=== PATIENT | female | born 2000 | race Hispanic/Latino ===

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

== ENCOUNTER 2022-05-18 18:15 | Outpatient (CLI) | payer OTHER ==
[~2022-05-18] VITALS: Ht 63 cm; Wt 80.1 kg
[~2022-05-18 18:15] MED LIST changes: +CYCL10TA25 PO; -CYCL10TA9 PO; -IBUP-15 PO; +IBUP-16 PO; +NAPR-1070 PO; -NAPR550T PO; +SERT-412 PO; -SERT25TA5 PO
[2022-05-18 18:40] VITALS: BP 126/79
[2022-05-18 18:52] VITALS: BP 126/79
[2022-05-18 19:51] LABS: BILIRUBIN,URINE NEGATIVE (NEGATIVE); CLARITY,URINE CLEAR; COLOR,URINE YELLOW; GLUCOSE, URINE (UA) NEGATIVE (NEGATIVE); KETONES,URINE NEGATIVE (NEGATIVE); LEUKOCYTE ESTERASE ,URINE TRACE (NEGATIVE); NITRITE,URINE NEGATIVE (NEGATIVE); PROTEIN,URINE NEGATIVE (NEGATIVE)
[2022-05-18 20:14] VITALS: BP 115/75
[2022-05-18 20:28] LABS: BACTERIA,URINE FEW /HPF
[2022-05-18 20:40] VITALS: BP 117/75
[2022-05-18] MEDS ORDERED: PREN-102 PO (20:54)
[2022-05-18 21:05] VITALS: BP 117/75
--- NOTE | 2022-05-19 09:22 | Physician Query-Final Dx ---
Clinic Account Progress/Dx Physician Query: Please give diagnosis Please include # weeks gestation Date of Service May 18, 2022 at 18:15 RJ,MayMay 19, 2022 09:22
== END 2022-05-18 21:05 ==
LOC: WSo 18:15 → LDRP 18:16 → WSo 21:05
PROVIDERS: ATTEND Family Medicine
DX: O16.3 Unspecified maternal hypertension, third trimester (principal); Z3A.39 39 weeks gestation of pregnancy
CPT/HCPCS: 81000; 87088; 99213

== ENCOUNTER 2022-05-27 02:09 | Inpatient (IN) | payer OTHER ==
[2022-05-27] VITALS (77 sets, daily range): BP systolic 94–164; BP diastolic 56–91
[~2022-05-27] VITALS: Ht 160 cm; Wt 81.0 kg
[~2022-05-27 02:09] MED LIST changes: +PREN-102 PO
[2022-05-27 02:44] LABS: BILIRUBIN,URINE NEGATIVE (NEGATIVE); COLOR,URINE YELLOW; GLUCOSE, URINE (UA) NEGATIVE (NEGATIVE); KETONES,URINE NEGATIVE (NEGATIVE); LEUKOCYTE ESTERASE ,URINE NEGATIVE (NEGATIVE); NITRITE,URINE NEGATIVE (NEGATIVE); PH,URINE 6.5 (5-9); PROTEIN,URINE NEGATIVE (NEGATIVE)
[2022-05-27 03:03] LABS: BACTERIA,URINE TRACE /HPF; CLARITY,URINE CLEAR
[2022-05-27] MEDS ORDERED: AMPICILLIN FOR IV USE 2,000 MG in NS (IVPB) 50 ML IV SCH (08:15)
--- NOTE | 2022-05-27 08:16 | History & Physical-OB ---
OB - Chief Complaint & HPI Date/Time Date of Admission: Date of Admission: Date seen by a Provider: May 27, 2022 Time Seen by a Provider: 08:18 Chief Complaint/History OB-Reason for Admission/Chief: Onset of Labor Hx : 2 Hx Para: 0 Expected Date of Delivery: May 24, 2022 Gestational Age in Weeks: 40 Gestational Age in Days: 3 History of Labs O+, antibody neg, RI. HIV/HepB/RPR neg. GC/chlamydia neg. GBS pos. Other 22 yo at 40w3d presented to hospital with contractions starting around 10 pm last night, was able to go to sleep for a bit, but got worse around 1 am, and came in. Initially found to be 1.5 cm dilated, this morning has changed to 4 cm. Allergies and Home Medications Allergies Coded Allergies: No Known Drug Allergies (Unverified , 04/14/09) Patient Home Medication List Home Medication List Reviewed: Yes Vits #93/Iron Fum/FA ( Formula Tablet) 9 Mg Iron-267 Mcg Tablet, 1 EACH PO DAILY, (Reported) Entered as Reported by: ALIA GAMEZ on 05/18/222053 Last Action: Reviewed OB - History Hx of Present Care: Yes Ultrasounds: Abnormal US findings (bilobed placenta, not near cervix, otherwise normal anatomy US, repeat US at 30 weeks done and concern for small growth, saw MFM and they felt EDC was wrong, and when adjusted, growth was appropriate, re peat US with them showed adequate growth) Obstetrical Complications: None Medical Complications: None Information Induced Hypertension: No Maternal Gestational Diabetes: No Hemorrhage: No Obstetrical History Hx : 2 Hx Para: 0 Hx # Term Pregnancies: 0 Hx # Pregnancies: 0 Number of Living Children: 0 Hx Termination: Yes Hx Total # of Abortions (Spona: 1 Hx Multiple Gestation: No Hx Ectopic : No Hx Stillbirth: No Hx Complication: No Hx Induced Hypertens: No Hx Maternal Gestational Diabet: No Hx Hemorrhage: No Delivery History Hx Dystocia: No Hx Forceps Assisted Delivery: No Hx Vacuum Extraction Assisted: No Hx Placenta Abnormality: No Hx Distress: No Hx Large For Gestational Age I: No Hx Small for Gestational Age I: No Hx Section: No Hx Vaginal Delivery Post C-Sec: No Hx Blood Disorders: No Adverse Rxn to Tranfusion: No Patient Past Medical History PMHx: Mild intermittent asthma Depression SurgHx: Denies Social History/Family History Alcohol Use: Denies Use Recreational Drug Use: Yes (history of THC, last use reported May 2021) Smoking Cessation: Never smoker 2nd Hand Smoke Exposure: No Immunizations Influenza Vaccine Up-to-Date: Yes; Up-to-Date Tetanus Booster (TDap): Less than 5yrs Rubella: immune RPR/VDRL: Negative GBS Status: Positive HBsAG: Negative OB - Admission Exam Physical Exam Vitals: Vital Signs HEENT: NCAT Abdomen: Non tender Extremities: Edema Cervical Dilatation: 4cm Effacement: 75% Station: -3 Membranes: Intact Heart Rate: 140's Accelerations: Accelerations Present Decelerations: No Decelerations Short Term Variability: Present Fpc Variability: Average (6-25) Contractions on Admission: < 5 Minutes Apart Labs Laboratory Tests Test 05/27/22 02:10 Range/Units Urine Color YELLOW Urine Clarity CLEAR Urine pH 6.5 5-9 Urine Specific [place] 1.020 1.016-1.022 Urine Protein NEGATIVE NEGATIVE Urine Glucose (UA) NEGATIVE NEGATIVE Urine Ketones NEGATIVE NEGATIVE Urine Nitrite NEGATIVE NEGATIVE Urine Bilirubin NEGATIVE NEGATIVE Urine Urobilinogen 0.2 < = 1.0 MG/DL Urine Leukocyte Esterase NEGATIVE NEGATIVE Urine RBC (Auto) NEGATIVE NEGATIVE Urine RBC NONE /HPF Urine WBC NONE /HPF Urine Squamous Epithelial Cells 5-10 /HPF Urine Crystals NONE /LPF Urine Bacteria TRACE /HPF Urine Casts NONE /LPF Urine Mucus NEGATIVE /LPF Urine Culture Indicated NO OB - Assessment/Plan/Diagnosis Assessment Admission Dx Term intrauterine at 40w3d Active labor GBS positive Admission Status: Inpatient Order (span 2 midnights) Reason for Inpatient Admission: Labor, delivery and course Plan Plan: Expectant Management Other Plan Ampicillin for GBS pos KELLY DUNNE MD May 27, 2022 08:16
[2022-05-27] MEDS ORDERED: fentaNYL INJ 100 MCG/2 ML AMP IVP PRN (08:30)
[2022-05-27] MEDS ORDERED: MINERAL OIL 30 ML UDC TOP PRN (08:30)
[2022-05-27 08:39] LABS: BASOPHILS % (AUTO) 0 % (0-10); EOSINOPHILS # (AUTO) 0.1 10^3/uL (0.0-0.3); EOSINOPHILS % (AUTO) 0 % (0-10); HEMATOCRIT 35 % (35-52); HEMOGLOBIN 11.4 g/dL (11.5-16.0); LYMPHOCYTES % (AUTO) 8 % (12-44); MEAN CORPUSCULAR HEMOGLOBIN 29 pg (25-34); MEAN CORPUSCULAR HGB CONC 33 g/dL (32-36); MEAN CORPUSCULAR VOLUME 87 fL (80-99); MEAN PLATELET VOLUME 11.8 fL (9.0-12.2); MONOCYTES # (AUTO) 0.3 10^3/uL (0.0-1.0); MONOCYTES % (AUTO) 3 % (0-12); NEUTROPHILS # (AUTO) 10.9 10^3/uL (1.8-7.8); NEUTROPHILS % (AUTO) 88 % (42-75); PLATELET COUNT 195 10^3/uL (130-400); WHITE BLOOD COUNT 12.4 10^3/uL (4.3-11.0)
[2022-05-27] MEDS ORDERED: fentaNYL 2 mcg/ml BUPIVA 0.125 100 ML ONE (08:40)
[2022-05-27] MEDS: D5 LR IV SOLUTION 1,000 ML IV SCH ×2 (08:47→16:12)
[2022-05-27 08:58] LABS: BAND NEUTROPHILS 0 %; BASOPHILS % (MANUAL) 0 %; EOSINOPHILS % (MANUAL) 0 %; LYMPHOCYTES % (MANUAL) 9 %; MONOCYTES % (MANUAL) 2 %; NEUTROPHILS % (MANUAL) 89 %; RBC MORPH NORMAL
[2022-05-27] MEDS ORDERED: BUPIVACAINE 0.25% 10 ML (SENSORCAINE) VIAL ONE (09:33)
[2022-05-27] MEDS ORDERED: fentaNYL INJ 100 MCG/2 ML AMP ONE (09:33)
[2022-05-27] MEDS ORDERED: CATHETER FLUSH 10 ML SYR IV PRN (10:15)
[2022-05-27] MEDS ORDERED: ONDANSETRON 4 MG/2 ML (SDV) Z0FRAN IV PRN (10:15)
[2022-05-27] MEDS ORDERED: LACTATED RINGERS 1,000 ML IV ONE (10:15)
[2022-05-27] MEDS ORDERED: NALOXONE 0.4 MG/ML 1 ML (NARCAN) VIAL IV PRN (10:15)
[2022-05-27] MEDS ORDERED: fentaNYL 2 mcg/ml BUPIVA 0.125 100 ML IV SCH (10:15)
[2022-05-27] MEDS ORDERED: diphenhydrAMINE 50 MG/ML INJ (BENADRYL) IV PRN (10:15)
[2022-05-27] MEDS: AMPICILLIN FOR IV USE 1,000 MG in NS (IVPB) 50 ML IV SCH ×4 (12:20→23:40)
[2022-05-27] MEDS ORDERED: CATHETER FLUSH 10 ML SYR IV SCH (14:00)
--- NOTE | 2022-05-27 20:34 | Labor Progress Note ---
Labor Progress Note Labor Progress Note Date Seen by Provider: May 27, 2022 Time Seen by Provider: 20:00 Subjective: Pt denies complaints. Objective: Cervical exam: /-3 Consistency: soft Position: anterior Presentation: vertex heart tones: 130 beats per minute, moderate variability, reactive Tocometer: 2-3 ctx/10 minutes Assessment/Plan: Myla Perez is a (22 /Para 2 / 0,Gestational Age (wks)40 here for active labor. AROM done at time of exam with meconium stained fluid return noted. CEFM/TOCO Anesthesia: epidural Anticipate vaginal delivery. Vitals - Labs Vital Signs - I&O Vital Signs Date Time Temp Pulse Resp B/P (MAP) Pulse Ox O2 Delivery O2 Flow Rate FiO2 05/27/22 19:18 36.6 65 18 121/78 (92) 100 05/27/22 19:05 67 18 114/78 (90) 100 Room Air 05/27/22 18:55 65 18 121/77 (92) 100 Room Air 05/27/22 18:45 36.3 64 18 121/74 (90) 100 Room Air 05/27/22 18:35 68 18 113/78 (90) 100 Room Air 05/27/22 18:25 64 18 120/82 (95) 100 Room Air 05/27/22 18:15 64 18 115/74 (88) 100 Room Air 05/27/22 18:05 60 18 111/74 (86) 100 Room Air 05/27/22 17:55 68 18 119/79 (92) 100 Room Air 05/27/22 17:45 62 18 111/73 (86) 100 Room Air 05/27/22 17:35 71 18 112/77 (89) 100 Room Air 05/27/22 17:25 74 18 109/73 (85) 100 Room Air 05/27/22 16:45 68 18 110/75 (87) 100 Room Air 05/27/22 16:35 36.3 75 18 105/75 (85) 99 Room Air 05/27/22 16:15 81 18 112/66 (81) 99 Room Air 05/27/22 16:05 68 18 118/75 (89) 99 Room Air 05/27/22 15:55 64 18 117/78 (91) 99 Room Air 05/27/22 15:45 57 18 125/81 (96) 100 Room Air 05/27/22 15:35 68 18 113/74 (87) 100 Room Air 05/27/22 15:25 56 18 115/72 (86) 100 Room Air 05/27/22 15:15 66 18 116/65 (82) 100 Room Air 05/27/22 15:07 66 18 112/73 (86) 100 Room Air 05/27/22 14:55 57 18 111/59 (76) 100 Room Air 05/27/22 14:45 67 18 115/70 (85) 100 Room Air 05/27/22 14:35 73 18 111/72 (85) 100 Room Air 05/27/22 14:19 79 18 110/64 (79) 100 Room Air 05/27/22 14:10 62 18 94/59 (71) 100 Room Air 05/27/22 14:00 36.7 77 18 100/56 (71) 99 Room Air 05/27/22 13:45 74 18 94/61 (72) 99 Room Air 05/27/22 13:30 57 18 105/63 (77) 99 Room Air 05/27/22 13:20 67 18 107/56 (73) 100 Room Air 05/27/22 13:10 66 18 109/68 (82) 99 Room Air 05/27/22 13:00 71 18 103/59 (74) 99 Room Air 05/27/22 12:45 67 18 95/59 (71) 99 Room Air 05/27/22 12:30 71 18 101/62 (75) 99 Room Air 05/27/22 12:15 65 18 102/59 (73) 100 Room Air 05/27/22 12:00 72 18 104/63 (77) 99 Room Air 05/27/22 11:45 73 18 110/69 (83) 99 Room Air 05/27/22 11:30 59 18 112/68 (83) 99 Room Air 05/27/22 11:15 63 18 101/59 (73) 99 Room Air 05/27/22 11:00 72 18 108/66 (80) 99 Room Air 05/27/22 10:50 67 18 107/66 (80) 98 Room Air 05/27/22 10:40 68 18 113/67 (82) 98 Room Air 05/27/22 10:30 60 18 110/62 (78) 97 Room Air 05/27/22 10:26 78 18 108/73 (85) 98 Room Air 05/27/22 10:20 36.4 75 18 113/75 (88) 99 Room Air 05/27/22 10:15 88 18 113/73 (86) 99 Room Air 05/27/22 10:10 74 18 112/78 (89) 98 Room Air 05/27/22 10:07 72 18 119/73 (88) 98 Room Air 05/27/22 10:04 74 18 118/67 (84) 98 Room Air 05/27/22 10:00 69 18 110/69 (83) 98 Room Air 05/27/22 09:54 75 18 119/74 (89) 99 Room Air 05/27/22 09:50 70 20 129/79 (96) 99 Room Air 05/27/22 09:48 80 20 126/73 (90) 99 Room Air 05/27/22 09:40 71 20 140/81 (100) 99 Room Air 05/27/22 08:00 36.3 66 18 128/76 (93) 98 Room Air 05/27/22 02:25 36.6 75 18 125/81 98 05/27/22 02:25 36.6 75 18 125/81 (96) 98 Room Air 05/27/22 02:25 36.6 75 18 98 Room Air Labs Laboratory Tests 05/27/22 02:10: Urine Color YELLOW, Urine Clarity CLEAR, Urine pH 6.5, Urine Specific [place] 1.020, Urine Protein NEGATIVE, Urine Glucose (UA) NEGATIVE, Urine Ketones NEGATIVE, Urine Nitrite NEGATIVE, Urine Bilirubin NEGATIVE, Urine Urobilinogen 0.2, Urine Leukocyte Esterase NEGATIVE, Urine RBC (Auto) NEGATIVE, Urine RBC NONE, Urine WBC NONE, Urine Squamous Epithelial Cells 5-10, Urine Crystals NONE, Urine Bacteria TRACE, Urine Casts NONE, Urine Mucus NEGATIVE, Urine Culture Indicated NO 05/27/22 08:25: White Blood Count 12.4H, Red Blood Count 3.98, Hemoglobin 11.4L, Hematocrit 35, Mean Corpuscular Volume 87, Mean Corpuscular Hemoglobin 29, Mean Corpuscular Hemoglobin Concent 33, Red Cell Distribution Width 13.0, Platelet Count 195, Mean Platelet Volume 11.8, Immature Granulocyte % (Auto) 1, Neutrophils (%) (Auto) 88H, Lymphocytes (%) (Auto) 8L, Monocytes (%) (Auto) 3, Eosinophils (%) (Auto) 0, Basophils (%) (Auto) 0, Neutrophils # (Auto) 10.9H, Lymphocytes # (Auto) 1.0, Monocytes # (Auto) 0.3, Eosinophils # (Auto) 0.1, Basophils # (Auto) 0.0, Immature Granulocyte # (Auto) 0.1, Neutrophils % (Manual) 89, Lymphocytes % (Manual) 9, Monocytes % (Manual) 2, Eosinophils % (Manual) 0, Basophils % (Manual) 0, Band Neutrophils 0, Blood Morphology Comment NORMAL KELLY DUNNE MD May 27, 2022 20:34
[2022-05-27] MEDS ORDERED: OXYTOCIN PRE-MIX DRIP 500 ML IV ONE (23:33)
[2022-05-27] MEDS ORDERED: LIDOCAINE 1% INJ 20 ML VIAL ONE (23:33)
[2022-05-28] VITALS (12 sets, daily range): BP systolic 116–142; BP diastolic 56–88
--- NOTE | 2022-05-28 02:21 | OB Labor & Delivery Record ---
Vag Delivery Note Vag Delivery Note Date of Delivery: 05/28/22 Preoperative Diagnosis: Myla Perez is a (22 /Para 2 / 0,Gestational Age (wks)40with 3 days Postoperative Diagnosis: Same Surgeon: KELLY DUNNE Anesthesia: Epidural Delivery Type: Findings: Viable female infant, apgars 8/9, weight pending Lacerations: first degree perineal, bilateral periurethral abrasions Intact placenta with 3 vessel cord. Nuchal cord x 1 delivered through, no body cord or shoulder dystocia Estimated Blood Loss: 200 ml Complications: None Condition: Stable Description of Procedure: The patient is a 22 year old female who presented in active labor. She was admitted and informed consent was obtained. Her labor course was unremarkable. She progressed to complete dilatation and began to push. She was then set up for delivery. The infant's head was delivered atraumatically in the ARIADNA position. The shoulders and remainder of the infant's body were then delivered without difficulty. Upon delivery, the head was held below the level of the perineum and the mouth and nares were bulb suctioned. The cord was doubly clamped and cut and the infant was handed off to the pediatric staff. An intact placenta with 3-vessel cord delivered via Evy and there was found to be minimal bleeding.~ Vigorous fundal massage was performed and the fundus was f ound to be firm. IV oxytocin was given. Examination of the vagina and perineum revealed a first degree perineal laceration repaired in the usual fashion with 3-0 vicryl rapide suture. Following the repair, sponge, instrument and needle counts were correct. Mom and baby were both in stable condition in the labor suite. Vitals - Labs Vital Signs - I&O Vital Signs Date Time Temp Pulse Resp B/P (MAP) Pulse Ox O2 Delivery O2 Flow Rate FiO2 05/27/22 23:26 61 100 Room Air 05/27/22 23:17 59 137/82 (100) 05/27/22 23:03 62 147/84 (105) 05/27/22 22:47 57 135/81 (99) 05/27/22 22:31 63 127/77 (94) 05/27/22 22:17 55 133/78 (96) 05/27/22 22:00 59 128/71 (90) 05/27/22 21:46 61 130/84 (99) 05/27/22 21:33 56 120/76 (91) 05/27/22 21:06 58 114/62 (79) 05/27/22 20:56 68 115/82 (93) 05/27/22 20:46 53 126/84 (98) 05/27/22 20:38 59 117/75 (89) 05/27/22 20:30 56 140/72 (94) 05/27/22 20:27 73 164/91 (115) 05/27/22 20:17 64 135/79 (97) 05/27/22 20:07 62 111/69 (83) 05/27/22 19:56 61 112/65 (81) 05/27/22 19:47 61 108/60 (76) 05/27/22 19:26 71 113/74 (87) 05/27/22 19:18 36.6 65 18 121/78 (92) 100 05/27/22 19:05 67 18 114/78 (90) 100 Room Air 05/27/22 18:55 65 18 121/77 (92) 100 Room Air 05/27/22 18:45 36.3 64 18 121/74 (90) 100 Room Air 05/27/22 18:35 68 18 113/78 (90) 100 Room Air 05/27/22 18:25 64 18 120/82 (95) 100 Room Air 05/27/22 18:15 64 18 115/74 (88) 100 Room Air 05/27/22 18:05 60 18 111/74 (86) 100 Room Air 05/27/22 17:55 68 18 119/79 (92) 100 Room Air 05/27/22 17:45 62 18 111/73 (86) 100 Room Air 05/27/22 17:35 71 18 112/77 (89) 100 Room Air 05/27/22 17:25 74 18 109/73 (85) 100 Room Air 05/27/22 16:45 68 18 110/75 (87) 100 Room Air 05/27/22 16:35 36.3 75 18 105/75 (85) 99 Room Air 05/27/22 16:15 81 18 112/66 (81) 99 Room Air 05/27/22 16:05 68 18 118/75 (89) 99 Room Air 05/27/22 15:55 64 18 117/78 (91) 99 Room Air 05/27/22 15:45 57 18 125/81 (96) 100 Room Air 05/27/22 15:35 68 18 113/74 (87) 100 Room Air 05/27/22 15:25 56 18 115/72 (86) 100 Room Air 05/27/22 15:15 66 18 116/65 (82) 100 Room Air 05/27/22 15:07 66 18 112/73 (86) 100 Room Air 05/27/22 14:55 57 18 111/59 (76) 100 Room Air 05/27/22 14:45 67 18 115/70 (85) 100 Room Air 05/27/22 14:35 73 18 111/72 (85) 100 Room Air 05/27/22 14:19 79 18 110/64 (79) 100 Room Air 05/27/22 14:10 62 18 94/59 (71) 100 Room Air 05/27/22 14:00 36.7 77 18 100/56 (71) 99 Room Air 05/27/22 13:45 74 18 94/61 (72) 99 Room Air 05/27/22 13:30 57 18 105/63 (77) 99 Room Air 05/27/22 13:20 67 18 107/56 (73) 100 Room Air 05/27/22 13:10 66 18 109/68 (82) 99 Room Air 05/27/22 13:00 71 18 103/59 (74) 99 Room Air 05/27/22 12:45 67 18 95/59 (71) 99 Room Air 05/27/22 12:30 71 18 101/62 (75) 99 Room Air 05/27/22 12:15 65 18 102/59 (73) 100 Room Air 05/27/22 12:00 72 18 104/63 (77) 99 Room Air 05/27/22 11:45 73 18 110/69 (83) 99 Room Air 05/27/22 11:30 59 18 112/68 (83) 99 Room Air 05/27/22 11:15 63 18 101/59 (73) 99 Room Air 05/27/22 11:00 72 18 108/66 (80) 99 Room Air 05/27/22 10:50 67 18 107/66 (80) 98 Room Air 05/27/22 10:40 68 18 113/67 (82) 98 Room Air 05/27/22 10:30 60 18 110/62 (78) 97 Room Air 05/27/22 10:26 78 18 108/73 (85) 98 Room Air 05/27/22 10:20 36.4 75 18 113/75 (88) 99 Room Air 05/27/22 10:15 88 18 113/73 (86) 99 Room Air 05/27/22 10:10 74 18 112/78 (89) 98 Room Air 05/27/22 10:07 72 18 119/73 (88) 98 Room Air 05/27/22 10:04 74 18 118/67 (84) 98 Room Air 05/27/22 10:00 69 18 110/69 (83) 98 Room Air 05/27/22 09:54 75 18 119/74 (89) 99 Room Air 05/27/22 09:50 70 20 129/79 (96) 99 Room Air 05/27/22 09:48 80 20 126/73 (90) 99 Room Air 05/27/22 09:40 71 20 140/81 (100) 99 Room Air 05/27/22 08:00 36.3 66 18 128/76 (93) 98 Room Air 05/27/22 02:25 36.6 75 18 125/81 98 05/27/22 02:25 36.6 75 18 125/81 (96) 98 Room Air 05/27/22 02:25 36.6 75 18 98 Room Air I & O 05/28/22 07:00 Intake Total 1100 ml Balance 1100 ml Labs Laboratory Tests 05/27/22 08:25: White Blood Count 12.4H, Red Blood Count 3.98, Hemoglobin 11.4L, Hematocrit 35, Mean Corpuscular Volume 87, Mean Corpuscular Hemoglobin 29, Mean Corpuscular Hemoglobin Concent 33, Red Cell Distribution Width 13.0, Platelet Count 195, Mean Platelet Volume 11.8, Immature Granulocyte % (Auto) 1, Neutrophils (%) (Auto) 88H, Lymphocytes (%) (Auto) 8L, Monocytes (%) (Auto) 3, Eosinophils (%) (Auto) 0, Basophils (%) (Auto) 0, Neutrophils # (Auto) 10.9H, Lymphocytes # (Auto) 1.0, Monocytes # (Auto) 0.3, Eosinophils # (Auto) 0.1, Basophils # (Auto) 0.0, Immature Granulocyte # (Auto) 0.1, Neutrophils % (Manual) 89, Lymphocytes % (Manual) 9, Monocytes % (Manual) 2, Eosinophils % (Manual) 0, Basophils % (Manual) 0, Band Neutrophils 0, Blood Morphology Comment NORMAL, Syphilis Serology Non-Reactive KELLY DUNNE MD May 28, 2022 02:21
[2022-05-28] MEDS ORDERED: OXYTOCIN PRE-MIX DRIP 0 ML IV ONE (02:28)
[2022-05-28] MEDS ORDERED: OXYTOCIN PRE-MIX DRIP 500 ML IV SCH (02:30)
[2022-05-28] MEDS ORDERED: WITCH HAZEL(TUCKS) 40 EA JAR TOP PRN (02:30)
[2022-05-28] MEDS ORDERED: BENZOCAINE/MENTHOL (DERMOPLAST) 56 ML CAN TP PRN (02:30)
[2022-05-28] MEDS: IBUPROFEN 600 MG (MOTRIN) TAB PO PRN ×3 (02:58→17:09)
[2022-05-28] MEDS ORDERED: CATHETER FLUSH 10 ML SYR IV SCH (06:00)
--- NOTE | 2022-05-28 09:10 | Anesthesia-Regional Post-Op ---
Regional Patient Condition Mental Status: Alert, Oriented x3 Circulation: Same as Pre-Op Headache: Absent Sensation: Full Recovery Motor Block: Absent Post Op Complications Complications None Follow Up Care/Instructions Patient Instructions None needed. Anesthesia/Patient Condition Patient is doing well, no complaints, stable vital signs, no apparent adverse anesthesia problems. No complications reported per nursing. D/C home per [facility] Criteria: Yes JOSE HAND CRNA May 28, 2022 09:10
[2022-05-28] MEDS: DOCUSATE SODIUM 100 MG (COLACE) CAP PO SCH ×2 (10:31→21:35)
[2022-05-29] MEDS: IBUPROFEN 600 MG (MOTRIN) TAB PO PRN ×2 (00:47→08:01)
[2022-05-29 01:30] VITALS: BP 139/89
[2022-05-29 05:30] LABS: BASOPHILS % (AUTO) 0 % (0-10); EOSINOPHILS # (AUTO) 0.4 10^3/uL (0.0-0.3); EOSINOPHILS % (AUTO) 3 % (0-10); HEMATOCRIT 32 % (35-52); HEMOGLOBIN 10.1 g/dL (11.5-16.0); LYMPHOCYTES # (AUTO) 2.9 10^3/uL (1.0-4.0); LYMPHOCYTES % (AUTO) 24 % (12-44); MEAN CORPUSCULAR HEMOGLOBIN 29 pg (25-34); MEAN CORPUSCULAR HGB CONC 32 g/dL (32-36); MEAN CORPUSCULAR VOLUME 89 fL (80-99); MEAN PLATELET VOLUME 11.5 fL (9.0-12.2); MONOCYTES # (AUTO) 0.6 10^3/uL (0.0-1.0); MONOCYTES % (AUTO) 5 % (0-12); NEUTROPHILS # (AUTO) 7.8 10^3/uL (1.8-7.8); NEUTROPHILS % (AUTO) 66 % (42-75); PLATELET COUNT 164 10^3/uL (130-400); WHITE BLOOD COUNT 11.7 10^3/uL (4.3-11.0)
[2022-05-29 08:00] VITALS: BP 140/87
[2022-05-29] MEDS: DOCUSATE SODIUM 100 MG (COLACE) CAP PO SCH (08:00)
[2022-05-29] MEDS ORDERED: IBUP-844 PO (12:57)
--- NOTE | 2022-05-29 13:01 | Short Stay Summary ---
Discharge Summary Hospital Course Final Diagnosis: see Hospital Course Hospital Course Date of Admission: May 27, 2022 at 08:15 Admission Diagnosis : 1. 40 GA, spontaneous labor 2. GBS positive Family Physician/Provider: Indira Awad MD Date of Discharge: 05/29/22 Discharge Diagnosis: 1. 40 GA, spontaneous labor s/p 05/28/21 at 0151 2. GBS positive - fully treated 3. First degree laceration repair Hospital Course: Routine course Labs and Pending Lab Test: Laboratory Tests 05/29/22 05:21: White Blood Count 11.7H, Red Blood Count 3.55L, Hemoglobin 10.1L, Hematocrit 32L , Mean Corpuscular Volume 89, Mean Corpuscular Hemoglobin 29, Mean Corpuscular Hemoglobin Concent 32, Red Cell Distribution Width 13.3, Platelet Count 164, Mean Platelet Volume 11.5, Immature Granulocyte % (Auto) 1, Neutrophils (%) (Auto) 66, Lymphocytes (%) (Auto) 24, Monocytes (%) (Auto) 5, Eosinophils (%) (Auto) 3, Basophils (%) (Auto) 0, Neutrophils # (Auto) 7.8, Lymphocytes # (Auto) 2.9, Monocytes # (Auto) 0.6, Eosinophils # (Auto) 0.4H, Basophils # (Auto) 0.0, Immature Granulocyte # (Auto) 0.1 Discharg Meds Formula Tablet ( Vits #93/Iron Fum/FA) 9 Mg Iron-267 Mcg Tablet 1 Each PO DAILY Ibuprofen 600mg every 6 hours as needed for cramping/pain. Assessment/Pt Instructions Follow-up with Dr. Awad in 2-3 days Discharge Instructions Discharge Diet: No Restrictions Discharge Physical Examination General Appearance: Alert, Oriented X3, Cooperative HEENT: PERRLA Respiratory: Clear to Auscultation Abdominal: Normal Bowel Sounds, Soft Psych/Mental Status: Mental Status NL Allergies: Coded Allergies: No Known Drug Allergies (Unverified , 04/14/09) Discharge Summary Date of Admission May 27, 2022 at 08:15 Date of Discharge KIRBY MONTEJO DO May 29, 2022 13:01
[2022-05-29 14:08] VITALS: BP 140/87
== END 2022-05-29 14:08 | disposition home or self-care (01) | DRG 807 ==
LOC: WSo 02:09 → LDRP 02:10 → WSo 08:15 → LDRP 05-28 04:30
PROVIDERS: ADMIT Family Medicine; ATTEND Family Medicine
PROC: 10E0XZZ Delivery of Products of Conception, External Approach (ICD-10-PCS; principal; 2022-05-28)
PROC: 0HQ9XZZ Repair Perineum Skin, External Approach (ICD-10-PCS; 2022-05-28)
DX: O48.0 Post-term pregnancy (principal); Z37.0 Single live birth; O99.824 Streptococcus B carrier state complicating childbirth; O43.193 Other malformation of placenta, third trimester; O77.0 Labor and delivery complicated by meconium in amniotic fluid; O70.0 First degree perineal laceration during delivery; O69.81X0 Labor and delivery complicated by cord around neck, without compression, not applicable or unspecified; Z3A.40 40 weeks gestation of pregnancy
CPT/HCPCS: 36415; 81000; 85007; 85025; 85027; 86780; 86850; 86900; 86901; 99212

== ENCOUNTER 2022-06-27 00:51 | Emergency (ER) | payer OTHER ==
[~2022-06-27] VITALS: Ht 160 cm; Wt 79.4 kg
[~2022-06-27 00:51] MED LIST changes: +IBUP-844 PO
[2022-06-27 00:56] VITALS: BP 154/102
--- NOTE | 2022-06-27 01:09 | ED GU-Female ---
General Chief Complaint: (<6 weeks) Stated Complaint: VAG BLEEDING Source: patient, old records History of Present Illness Date Seen by Provider: Jun 27, 2022 Time Seen by Provider: 01:00 Initial Comments PT ARRIVES VIA POV FROM HOME PT DELIVERED 05/28/22 VIA NORMAL AND DELIVERY, WITHOUT COMPLICATIONS. CHILD DID NOT HAVE ANY PROBLEMS AND IS DOING WELL PT IS WELL. PT STATES SHE BEGAN HAVING VAGINAL BLEEDING ON 06/25/22, AND IS A LITTLE HEAVIER THAN HER PREVIOUS PERIODS AND HAS PASSED SOME CLOTS. SHE IS HAVING VERY MILD CRAMPING--NO DIFFERENT THAN CRAMPING WITH HER PREVIOUS PERIODS SHE HAS USED A TOTAL OF 4 REGULAR PADS IN THE LAST 24 HOURS. NO FEVER SLIGHT NAUSEA, NO VOMITING--SAME WITH PREVIOUS PERIODS. NO URINARY SYMPTOMS PT WAS SLIGHTLY DIZZY 3 DAYS AGO, BUT HAS NOT BEEN DIZZY SINCE THEN. SHE IS NOT ON CONTROL, AND ADAMANTLY DENIES HAVING INTERCOURSE SINCE DELIVERY SHE DOES NOT HAVE ANY BREAST COMPLAINTS. PT HAS AN APPOINTMENT 07/08/[address] FOR [address]AM WITH DR. DUNNE. SYMPTOMS ARE NO DIFFERENT TONIGHT IN ANY WAY SHE HAS NOT SOUGHT CARE UNTIL TONIGHT SHE HAS NOT TAKEN ANYTHING FOR SYMPTOMS SHE IS NOT HAVING ANY BRUISING OR BLEEDING FROM OTHER SITES PCP: DR. DUNNE Allergies and Home Medications Allergies Coded Allergies: No Known Drug Allergies (Unverified , 04/14/09) Patient Home Medication List Ibuprofen (Ibu) 600 Mg Tablet, 600 MG PO Q6HR PRN for CRAMPS Prescribed by: KIRBY MONTEJO on 05/29/22 1257 Vits #93/Iron Fum/FA ( Formula Tablet) 9 Mg Iron-267 Mcg Tablet, 1 EACH PO DAILY, (Reported) Entered as Reported by: ALIA GAMEZ on 05/18/222053 Review of Systems Review of Systems Constitutional: see HPI EENTM: no symptoms reported Respiratory: no symptoms reported; No short of breath Cardiovascular: no symptoms reported Gastrointestinal: see HPI Genitourinary: see HPI : No Musculoskeletal: no symptoms reported Skin: no symptoms reported Psychiatric/Neurological: No Symptoms Reported Endocrine: No Symptoms Reported Hematologic/Lymphatic: No Symptoms Reported Past Aroynhn-Lwcsvp-Uuvtme Hx Patient Social History Tobacco Use?: No Substance use?: No Alcohol Use?: No Pt feels they are or have been: No Immunizations Up To Date Tetanus Booster (TDap): Less than 5yrs PED Vaccines UTD: Yes First/Initial COVID19 Vaccinat: x2 Seasonal Allergies Seasonal Allergies: No Past Medical History Surgery/Hospitalization HX: vag 05/27/22 Depression Adverse Reaction/Blood Tranf: No Family Medical History No Pertinent Family Hx Physical Exam Vital Signs Vital Signs - First Documented 06/27/22 00:56 Temp 36.5 Pulse 81 Resp 16 B/P (MAP) 154/102 (119) Pulse Ox 100 O2 Delivery Room Air Capillary Refill : Height, Weight, BMI Height: 5'5.00" Weight: 130lbs. oz. 58.228312oy; 31.64 BMI Method:Estimated Progress/Results/Core Measures Suspected Sepsis SIRS Temperature: Pulse: Respiratory Rate: Blood Pressure / Mean: Results/Orders Vital Signs/I&O 06/27/22 06/27/22 00:56 01:07 Temp 36.5 Pulse 81 79 Resp 16 16 B/P (MAP) 154/102 (119) 135/95 (108) Pulse Ox 100 100 O2 Delivery Room Air Room Air Capillary Refill : Departure Impression Primary Impression: FIRST POST MENSTRUAL CYCLE Disposition: 01 HOME, SELF-CARE Condition: Stable Departure-Patient Inst. Decision time for Depature: 01:08 Referrals: KELLY DUNNE MD (PCP/Family) Primary Care Physician Patient Instructions: Menstruation Add. Discharge Instructions: HOME, REST INCREASE YOUR FLUID INTAKE TYLENOL And MOTRIN NEEDED FOR PAIN KEEP YOUR APPOINTMENT WITH DR. DUNNE THIS MONTH RETURN TO ER IF YOU ARE SOAKING MORE THAN 1 MAXI PAD AN HOUR All discharge instructions reviewed with patient and/or family. Voiced understanding. JHON CHOI DO Jun 27, 2022 01:09
== END 2022-06-27 01:13 | disposition home or self-care (01) ==
LOC: EDUNIT# 00:51 → ER 00:53
DX: O72.1 Other immediate postpartum hemorrhage (principal)
CPT/HCPCS: 99281